=== PATIENT | female | born 1985 | race Caucasian/White ===

== ENCOUNTER 2017-08-01 08:27 | Day surgery (SDC) | payer OTHER ==
[~2017-08-01] VITALS: Ht 162.6 cm; Wt 79.2 kg
[~2017-08-01 08:27] MED LIST: BIRTH CONTROL RING; PRENATAL1 TA1 PO
[2017-08-01 09:08] VITALS: BP 119/76; PULSE 64; TEMP 98.3
[2017-08-01 10:20] VITALS: BP 124/71; PULSE 64; TEMP 97.9
[2017-08-01 10:35] VITALS: BP 106/68; PULSE 58
[2017-08-01] MEDS ORDERED: PRILOSEC 20MG20 MG PO (10:48)
[2017-08-01 10:50] VITALS: BP 113/77; PULSE 56
== END 2017-08-01 11:10 | disposition home or self-care (01) ==
LOC: SDCO 08:27
DX: K21.9 Gastro-esophageal reflux disease without esophagitis (principal); K30 Functional dyspepsia; K92.1 Melena; K64.1 Second degree hemorrhoids; K59.00 Constipation, unspecified; F41.9 Anxiety disorder, unspecified; F32.9 Major depressive disorder, single episode, unspecified
CPT/HCPCS: OP; J2250; J2405; J3010; J7030

== ENCOUNTER 2017-12-06 21:07 | Emergency (ER) | payer OTHER ==
[~2017-12-06] VITALS: Ht 162.6 cm; Wt 75.5 kg
[~2017-12-06 21:07] MED LIST changes: +PRILOSEC 20MG20 MG PO
[2017-12-06 21:16] VITALS: BP 166/92; TEMP 99.1
[2017-12-06] MEDS ORDERED: TAMIFLU 75MG75 MG PO (23:45)
[2017-12-06 23:58] VITALS: PULSE 87
== END 2017-12-06 23:58 | disposition home or self-care (01) ==
LOC: COL.ER 21:07
DX: J11.1 Influenza due to unidentified influenza virus with other respiratory manifestations (principal); Z88.0 Allergy status to penicillin